=== PATIENT | female | born 1940 | race Caucasian/White ===

== ENCOUNTER 2020-08-02 10:38 | Inpatient (IN) | payer OTHER ==
[~2020-08-02 10:38] MED LIST: CARDIZEM CD180 MG PO; COUMADIN7.5 MG PO; DILTIAZEM 24HR120 M1 PO; ESZOPICLONE3 MG PO; PANTOPRAZOLE SO40 MG PO; SYNTHROID25 MCG PO; TOPROL XL 25MG25 MG PO
[2020-08-02 12:02] LABS: BASOPHIL 0.3 % (0-2); EOSINOPHIL 11.1 % (0-7); HCT 38.6 % (37.0-47.0); HGB 12.9 g/dl (12.5-16.0); LYMPHOCYTE 23.5 % (15-48); MCH 30.4 pg (25.0-31.0); MCHC 33.4 g/dL (32.0-36.0); MCV 90.8 fL (78.0-100.0); MONOCYTE 7.7 % (0-12); MPV 9.4 fL (6.0-9.5); NEUTROPHIL 57.2 % (41-80); NRBC 0; PLT 287 K/uL (150-400); RBC 4.25 M/uL (4.20-5.40); RDW 13.8 % (11.5-14.0); WBC 6.1 K/uL (4.0-10.5)
[2020-08-02 12:06] LABS: INR 2.62 (0.9-1.2); PROTHROMBIN TIME 26.7 SECONDS (11.4-13.6)
[2020-08-02 12:27] LABS: PRO-BNP 3745 pg/mL (<450)
[2020-08-02 12:42] LABS: CREATININE 0.84 mg/dL (0.51-0.95); POTASSIUM 3.1 mmol/L (3.5-5.1)
[2020-08-02 12:43] LABS: ALBUMIN 3.3 g/dL (3.4-5.0); BILIRUBIN - TOTAL 0.6 mg/dL (0.2-1.0); C-REACTIVE PROTEIN 1.5 mg/dL (<=0.90); MAGNESIUM 1.5 mg/dL (1.8-2.4); TOTAL PROTEIN 7.3 g/dL (6.4-8.2)
[2020-08-02 13:01] LABS: IRON % SATURATION 19.6 %SAT (20-50)
[2020-08-02] MEDS ORDERED: TOPROL XL 25MG25 MG PO (15:50)
[2020-08-02] MEDS ORDERED: JANTOVEN5 MG PO (15:52)
[2020-08-02] MEDS ORDERED: JANTOVEN7.5 MG PO (15:53)
--- NOTE | 2020-08-02 18:08 | NUR ---
1600 DR SHEIKH IN ROOM AT THIS TIME, HR 130-140'S HE INCREASED CARDIZEM DRIP TO 10MG.
--- NOTE | 2020-08-02 21:25 | NUR ---
PT REFUSED HOME DOSE OF 25 MG METOPROLOL XL HS, STATES IT HAD BEEN MAKING HER DIZZY AT HOME AND SHE HAD NOT BEEN TAKING IT AT HOME FOR SOME TIME NOW, EDUCATED PATIENT ON MONITORING HEART RATE AND BLOOD PRESSURE AT HOME PRIOR TO MEDICATION ADMINISTRATION, PT VERBALIZED UNDERSTANDING, ENCOURAGED PT TO SEEK FURTHER EDUCATION/INSTRUCTOIN FROM [facility] SPECIALIST IN AM, CALLED ASSISTANT CASE MANAGER TO INFORM OF NONCOMPLIANCE TO MEDICATOIN REGIME AND ACKNOWLEDGE PTS NEED FOR FURTHER EDUCATION OR MEDICATION REGIME CHANGE FROM [facility] SPECIALIST IN AM CONSULT.
[2020-08-03 06:46] LABS: BASOPHIL 0.4 % (0-2); EOSINOPHIL 10.9 % (0-7); HCT 37.9 % (37.0-47.0); HGB 12.2 g/dl (12.5-16.0); LYMPHOCYTE 37.4 % (15-48); MCH 29.5 pg (25.0-31.0); MCHC 32.2 g/dL (32.0-36.0); MCV 91.8 fL (78.0-100.0); MONOCYTE 9.3 % (0-12); MPV 9.5 fL (6.0-9.5); NEUTROPHIL 41.6 % (41-80); NRBC 0; PLT 289 K/uL (150-400); RBC 4.13 M/uL (4.20-5.40); WBC 5.7 K/uL (4.0-10.5)
[2020-08-03 07:13] LABS: INR 2.66 (0.9-1.2)
[2020-08-03 07:21] LABS: ALBUMIN 3.1 g/dL (3.4-5.0); BILIRUBIN - TOTAL 0.6 mg/dL (0.2-1.0); BUN/CREAT RATIO (CALC) 15.6 RATIO; C-REACTIVE PROTEIN 1.4 mg/dL (<=0.90); CREATININE 1.09 mg/dL (0.51-0.95); GLOBULIN (CALCULATION) 3.8 g/dL; POTASSIUM 3.4 mmol/L (3.5-5.1); TOTAL PROTEIN 6.9 g/dL (6.4-8.2)
--- NOTE | 2020-08-03 11:23 | NUR ---
PT REPORTS SHE LIVES WITH SPOUSE; PT REPORTS SHE IS INDEPENDENT; PLEASE ADVISE OF ANY DISCHARGE NEEDS
--- NOTE | 2020-08-03 17:53 | NUR ---
1300 PATIENTS HEART RATE WAS 60S 70S SO TURNED OFF CARDIZEM GTT AND SHE STAYED LIKE THAT UNTIL 1702 THEN SHE HAD GOTTEN UP TO BSC AND HEART RATE JUMPED BACK UP TO 145. SO I TURNED THE CARDIZEM GTT BACK ON AND NOTIFIED DR TORRES
[2020-08-04 03:55] LABS: BASOPHIL 0.3 % (0-2); EOSINOPHIL 16.2 % (0-7); HCT 36.2 % (37.0-47.0); HGB 11.7 g/dl (12.5-16.0); LYMPHOCYTE 25.8 % (15-48); MCHC 32.3 g/dL (32.0-36.0); MCV 92.8 fL (78.0-100.0); MONOCYTE 8.4 % (0-12); MPV 9.7 fL (6.0-9.5); NEUTROPHIL 49.2 % (41-80); NRBC 0; PLT 283 K/uL (150-400); RDW 14.1 % (11.5-14.0); WBC 7.6 K/uL (4.0-10.5)
[2020-08-04 04:08] LABS: INR 2.82 (0.9-1.2); PROTHROMBIN TIME 28.3 SECONDS (11.4-13.6)
[2020-08-04 04:14] LABS: BUN/CREAT RATIO (CALC) 21.6 RATIO; CREATININE 1.16 mg/dL (0.51-0.95)
[2020-08-04 04:46] LABS: POTASSIUM 4.9 mmol/L (3.5-5.1)
--- NOTE | 2020-08-04 12:25 | NUR ---
08/04/20 Ms. Nguyen lives with her spouse. She has a s. chair. Otherwise, she was independent at home and community. A referral was made to [facility] per patient choice. Discharge is anticipated for today if patient tolorate medications.
[2020-08-04] MEDS ORDERED: TOPAMAX100 MG PO (16:29)
[2020-08-04] MEDS ORDERED: TOPROL XL100 MG PO (16:40)
== END 2020-08-04 18:00 | disposition home health service (06) | DRG 291 ==
LOC: FER 10:38 → FTCU 14:30
PROVIDERS: Emergency Medicine; Internal Medicine; Nurse Practitioner Family; ADMIT Internal Medicine
PROC: 8E0ZXY6 Isolation (ICD-10-PCS; principal; 2020-08-02)
DX: I11.0 Hypertensive heart disease with heart failure (principal); U07.1 COVID-19; I50.33 Acute on chronic diastolic (congestive) heart failure; I48.91 Unspecified atrial fibrillation; E03.9 Hypothyroidism, unspecified; M19.90 Unspecified osteoarthritis, unspecified site; G47.00 Insomnia, unspecified; Z85.43 Personal history of malignant neoplasm of ovary; Z79.01 Long term (current) use of anticoagulants
CPT/HCPCS: 36415; 71045; 80048; 80053; 82550; 82728; 83540; 83550; 83605; 83735; 83880; 84145; 84443; 84484; 85025; 85610; 86140; 93005; 94010; J1642; J1940; J3475; U0002

== ENCOUNTER 2021-05-11 02:45 | Day surgery (SDCO) | payer OTHER ==
[~2021-05-11] VITALS: Ht 165.1 cm; Wt 88.2 kg
[~2021-05-11 02:45] MED LIST changes: +JANTOVEN5 MG PO; +JANTOVEN7.5 MG PO; +TOPAMAX100 MG PO; +TOPROL XL100 MG PO
[2021-05-11 03:29] LABS: BASOPHIL 0.4 % (0-2); EOSINOPHIL 6.8 % (0-7); HCT 38.9 % (37.0-47.0); HGB 12.8 g/dl (12.5-16.0); LYMPHOCYTE 21.5 % (15-48); MCH 29.9 pg (25.0-31.0); MCHC 32.9 g/dL (32.0-36.0); MCV 90.9 fL (78.0-100.0); MONOCYTE 8.1 % (0-12); MPV 9.7 fL (6.0-9.5); NRBC 0; PLT 275 K/uL (150-400); RBC 4.28 M/uL (4.20-5.40); RDW 13.3 % (11.5-14.0); WBC 9.7 K/uL (4.0-10.5)
[2021-05-11 03:37] LABS: INR 1.57 (0.9-1.2)
[2021-05-11 03:38] LABS: PTT 42.9 SECONDS (24.4-34.7)
[2021-05-11 03:48] LABS: ALBUMIN 3.4 g/dL (3.4-5.0); BILIRUBIN - TOTAL 0.4 mg/dL (0.2-1.0); BUN/CREAT RATIO (CALC) 29.6 RATIO; CREATININE 0.81 mg/dL (0.51-0.95); GLOBULIN (CALCULATION) 4.2 g/dL; MAGNESIUM 1.9 mg/dL (1.8-2.4); PHOSPHORUS 3.7 mg/dL (2.6-4.7); POTASSIUM 4.1 mmol/L (3.5-5.1); TOTAL PROTEIN 7.6 g/dL (6.4-8.2)
[2021-05-11 04:07] LABS: BILIRUBIN NEGATIVE (NEGATIVE); BLOOD NEGATIVE Ery/uL (NEGATIVE); CLARITY CLEAR (CLEAR); COLOR YELLOW (YELLOW); GLUCOSE (U) NORMAL (NORMAL); LEUKOCYTES NEGATIVE Leu/uL (NEGATIVE); NITRITE NEGATIVE (NEGATIVE); PROTEIN NEGATIVE (NEGATIVE); SPECIFIC GRAVITY 1.015 (1.001-1.030); UROBILINOGEN 0.2 mg/dL (0.2-1.0); pH 6.5 (5.0-9.0)
--- NOTE | 2021-05-11 06:04 | NUR ---
ARRIVED TO FLOOR ALERT AND ORIENTED, AMBULATED TO BED BED LOCKED IN LOW POSITION CALL LIGHT IN REACH
[2021-05-11] MEDS ORDERED: LUNESTA3 MG PO (06:14)
[2021-05-12 07:13] LABS: BASOPHIL 0.2 % (0-2); EOSINOPHIL 7.5 % (0-7); HCT 40.9 % (37.0-47.0); HGB 13.3 g/dl (12.5-16.0); MCH 29.7 pg (25.0-31.0); MCHC 32.5 g/dL (32.0-36.0); MCV 91.3 fL (78.0-100.0); MONOCYTE 7.7 % (0-12); MPV 9.9 fL (6.0-9.5); NEUTROPHIL 63.2 % (41-80); NRBC 0; PLT 285 K/uL (150-400); RBC 4.48 M/uL (4.20-5.40); RDW 13.2 % (11.5-14.0); WBC 9.2 K/uL (4.0-10.5)
[2021-05-12 07:16] LABS: INR 1.74 (0.9-1.2); PROTHROMBIN TIME 19.6 SECONDS (11.8-13.4)
[2021-05-12 07:25] LABS: BUN/CREAT RATIO (CALC) 26.8 RATIO; CREATININE 0.97 mg/dL (0.51-0.95); POTASSIUM 4.3 mmol/L (3.5-5.1)
[2021-05-12 08:08] LABS: EOSINOPHIL(M) 5 % (0-7); LYMPHOCYTE(M) 19 % (15-48); MONOCYTE(M) 8 % (0-12); NEUTROPHILS(M) 66 % (41-80); TOTAL CELL COUNT 100; VARIANT LYMPHOCYTE 2
[2021-05-12 08:09] LABS: PLATELET ESTIMATE NORMAL; PLATELET MORPHOLOGY NORMAL
[2021-05-12] MEDS ORDERED: JANTOVEN5 MG PO (10:06)
[2021-05-12] MEDS ORDERED: FUROSEMIDE 20MG20 MG PO (10:06)
[2021-05-12] MEDS ORDERED: CARDIZEM CD240 MG PO (10:06)
--- NOTE | 2021-05-12 14:57 | NUR ---
Ms. Nguyen lives at home with her spouse. She was independent in the home and community prior to admission. She does not use any DME. No discharge planning needs were anticipated.
== END 2021-05-12 11:30 | disposition home or self-care (01) ==
LOC: FER 02:45 → FTCU 05:00
PROVIDERS: Emergency Medicine Emergency Medical Services; Nurse Practitioner Family; ADMIT Internal Medicine
DX: I48.20 Chronic atrial fibrillation, unspecified (principal); I10 Essential (primary) hypertension; M19.90 Unspecified osteoarthritis, unspecified site; D68.8 Other specified coagulation defects; E03.9 Hypothyroidism, unspecified; I25.10 Atherosclerotic heart disease of native coronary artery without angina pectoris; R29.90 Unspecified symptoms and signs involving the nervous system; I16.9 Hypertensive crisis, unspecified; Z20.822 Contact with and (suspected) exposure to COVID-19; Z79.01 Long term (current) use of anticoagulants; Z79.899 Other long term (current) drug therapy; Z86.16 Personal history of COVID-19; Z85.43 Personal history of malignant neoplasm of ovary; Z92.21 Personal history of antineoplastic chemotherapy; Z80.8 Family history of malignant neoplasm of other organs or systems; Z90.49 Acquired absence of other specified parts of digestive tract; Z90.710 Acquired absence of both cervix and uterus
CPT/HCPCS: 36415; 70450; 71045; 80048; 80053; 81003; 82550; 83735; 83880; 84100; 84484; 85025; 85610; 85730; 93005; 94010; G0378; J3490; Q9967; U0002